=== PATIENT | female | born 1975 ===

== ENCOUNTER 2017-08-22 20:57 | Emergency (ER) | payer MEDICAID ==
[2017-08-22 20:58] VITALS: BMI 27.8
[2017-08-22 21:36] VITALS: RESP 16
--- NOTE | 2017-08-22 21:37 | C.PDOC ---
History Of Present Illness 42 yo female come in for evaluation of Right forearm itchy rash gradually developed for past few days, intermittent. Otherwise, pot denies known allergy to food or medication, denies recent abx or new medication use, recent illness, fever, chills, sore throat, drooling, dysphagia, dyspnea, cough, wheezing, palpitation, abd. pain, N/V, denies any other active complaints. Ambulate to Ed for evaluation, not n any apparent distress. Time Seen by Provider: 08/22/17 21:01 Chief Complaint (Nursing): Abnormal Skin Integrity History Per: Patient Onset/Duration Of Symptoms: Gradual Past Medical History Reviewed: Historical Data, Nursing Documentation, Vital Signs Vital Signs: Last Vital Signs Temp 98.8 F 08/22/17 21: Pulse 80 08/22/17 21:22 Resp 16 08/22/17 21:22 BP 111/73 08/22/17 21: Pulse Ox 97 08/22/17 21:22 - Medical History PMH: Hypothyroidism (just diagnosed few weeks ago) Family History: States: No Known Family Hx - Social History Hx Tobacco Use: No Hx Alcohol Use: Yes Hx Substance Use: No - Immunization History Hx Tetanus Toxoid Vaccination: No Hx Influenza Vaccination: No Hx Pneumococcal Vaccination: No Review Of Systems Except As Marked, All Systems Reviewed And Found Negative. Constitutional: Negative for: Fever, Chills Eyes: Negative for: Vision Change ENT: Negative for: Nose Discharge, Throat Pain, Throat Swelling Cardiovascular: Negative for: Chest Pain, Palpitations Respiratory: Negative for: Cough, Shortness of Breath, Wheezing Gastrointestinal: Negative for: Nausea, Vomiting, Abdominal Pain Musculoskeletal: Negative for: Neck Pain Skin: Positive for: Rash Neurological: Negative for: Weakness, Numbness, Headache, Dizziness Physical Exam - Physical Exam Appears: Well, Non-toxic, No Acute Distress Skin: Normal Color, Warm, Rash (urticaria rash to Right forearm. No edema.) Head: Normacephalic Eye(s): bilateral: PERRL Ear(s): Bilateral: Normal Nose: No Flaring, No Discharge Oral Mucosa: Moist Tongue: No Swelling Lips: No Swelling Throat: No Erythema, No Drooling, Other (uvula midline, no edema.) Neck: Trachea Midline, Supple Cardiovascular: Rhythm Regular Respiratory: No Decreased Breath Sounds, No Accessory Muscle Use, No Stridor, No Wheezing Extremity: Normal ROM, No Deformity, No Swelling Neurological/Psych: Oriented x3, Normal Speech ED Course And Treatment O2 Sat by Pulse Oximetry: 97 Pulse Ox Interpretation: Normal Progress Note: On re-evaluation, pt is afebrile, hemodynmaicaly stable. Non- toxic. Tolerate Po well in ED. PuslEOx 97% RA. Neck: Supple, (-) meningeal sign. ENT: no acute findings. uvula midline, no edema. Lungs: CTA B/L, BS equal B/L. Skin: urticaria to Right forearm. no edema. Neurologicaly intact. Pt advised. ref. to f/u with PMD, cash register mechanic in 2-3 days for re-eavl. return if any worsening or new changes. Disposition Counseled Patient/Family Regarding: Diagnosis, Need For Followup, Rx Given - Disposition Referrals: [facility] [Outside] Disposition: HOME/ ROUTINE Disposition Time: 21:35 Condition: STABLE Additional Instructions: AVOID FOOD,DRINKS CAUSE ALLERGIC REACTION TAKE MEDICATION PRESCRIBED FOLLOW UP WITH PMD, DYE REEL OPERATOR HELPER IN 2-3 DAYS FOR RE-EVALUATION. RETURN TO ED IF ANY WORSENING OR NEW CHANGES. Prescriptions: DiphenhydrAMINE [Benadryl] 25 mg PO BID #10 cap Famotidine [Pepcid] 20 mg PO BID #10 tab Prednisone [Deltasone] 40 mg PO DAILY #6 tablet Instructions: Hives - Clinical Impression Clinical Impression: Urticaria
[2017-08-22 22:00] VITALS: BP 106/74; PULSE 74; TEMP 98; O2SAT 98
== END 2017-08-22 22:05 | disposition home or self-care (01) ==
LOC: C.ER 20:57
DX: L50.9 Urticaria, unspecified (principal)

== ENCOUNTER 2017-09-27 13:58 | Emergency (ER) | payer MEDICAID ==
[2017-09-27 13:58] VITALS: BMI 27.8
[2017-09-27 14:17] VITALS: RESP 18
--- NOTE | 2017-09-27 14:25 | C.PDOC ---
History Of Present Illness 42 year old female presents to the ED complaining of right arm pain, work- related. She denies any numbness, weakness, or tingling. She also complains of headaches, hot flashes, generalized weakness and states her period is one month late. She reports negative test at home. Patient states she started her menstrual cycle at 6 years old and believes her symptoms could be from pre- menopause. She has an appointment with PMD in 4 days. Time Seen by Provider: 09/27/17 14:19 Chief Complaint (Nursing): Upper Extremity Problem/Injury History Per: Patient History/Exam Limitations: no limitations Onset/Duration Of Symptoms: Days Current Symptoms Are (Timing): Still Present Past Medical History Reviewed: Historical Data, Nursing Documentation, Vital Signs Vital Signs: Last Vital Signs Temp 98.6 F 09/27/17 14:35 Pulse 92 H 09/27/17 14:35 Resp 18 09/27/17 14:35 BP 136/82 09/27/17 14:35 Pulse Ox 97 09/27/17 14:44 - Medical History PMH: Hypothyroidism (just diagnosed few weeks ago) Surgical History: No Surg Hx Family History: States: No Known Family Hx - Social History Hx Tobacco Use: No Hx Alcohol Use: Yes Hx Substance Use: No - Immunization History Hx Tetanus Toxoid Vaccination: No Hx Influenza Vaccination: No Hx Pneumococcal Vaccination: No Review Of Systems Constitutional: Positive for: Sweats, Weakness, Other (Hotflashes ) Musculoskeletal: Positive for: Arm Pain (Right) Neurological: Positive for: Headache. Negative for: Weakness, Numbness Physical Exam - Physical Exam Appears: Non-toxic, No Acute Distress Skin: Warm, Dry Head: Atraumatic, Normacephalic Eye(s): bilateral: Normal Inspection Nose: Normal Oral Mucosa: Moist Neck: Normal ROM, Supple Chest: Symmetrical Extremity: Normal ROM (Right arm ), No Tenderness (right arm ), Capillary Refill (< 2sec to right arm ), No Deformity, No Swelling Extremity: Bilateral: Atraumatic, Normal Color And Temperature, Normal ROM Neurological/Psych: Oriented x3, Normal Speech, Normal Motor, Normal Sensation Gait: Steady ED Course And Treatment O2 Sat by Pulse Oximetry: 97 (RA) Pulse Ox Interpretation: Normal Medical Decision Making Medical Decision Making: Impression: Perimenopause, arm strain Patient was assessed and examined. Patient advised to follow up with PMD during her appointment on Friday. Disposition Counseled Patient/Family Regarding: Diagnosis, Need For Followup - Disposition Referrals: Deon Smith MD [Medical Doctor] - Disposition: HOME/ ROUTINE Disposition Time: 14:23 Condition: STABLE Additional Instructions: Take Tylenol 500mg for any pain Take Motrin as needed for pain every 6 hours Instructions: Muscle Strain (DC), Perimenopause Forms: [facility] (Slovak) - POA Present On Arrival: None - Clinical Impression Clinical Impression: Shoulder strain, Aklli-menopausal - PA / CELL ASSEMBLY PINNER / Resident Statement MD/DO has reviewed & agrees with the documentation as recorded. - Scribe Statement The provider has reviewed the documentation as recorded by the Scribbranden Spears All medical record entries made by the Yolaibbranden were at my direction and personally dictated by me. I have reviewed the chart and agree that the record accurately reflects my personal performance of the history, physical exam, medical decision making, and the department course for this patient. I have also personally directed, reviewed, and agree with the discharge instructions and disposition.
[2017-09-27 14:36] VITALS: BP 136/82; PULSE 92; TEMP 98.6
[2017-09-27 14:44] VITALS: O2SAT 97
== END 2017-09-27 14:36 | disposition home or self-care (01) ==
LOC: C.ER 13:58
DX: S46.911A Strain of unspecified muscle, fascia and tendon at shoulder and upper arm level, right arm, initial encounter (principal); X58.XXXA Exposure to other specified factors, initial encounter; Z78.0 Asymptomatic menopausal state